=== PATIENT | female | born 1945 | race Caucasian/White ===

== ENCOUNTER → 2024-07-17 08:03 | Outpatient (REF) | payer MEDICARE, OTHER, SELFPAY ==
[2024-07-17 10:05] LABS: ALT (SGPT) 13 U/L (0-35); AST (SGOT) 21 U/L (14-36); Albumin 4.6 g/dl (3.5-5.0); Alkaline Phosphatase 40 U/L (38-126); Blood Urea Nitrogen 28 mg/dl (7-17); Calcium 10.1 mg/dl (8.4-10.2); Carbon Dioxide 28 mmol/L (22-30); Chloride 98 mmol/L (98-107); Glucose 171 mg/dl (70-99); HDL Cholesterol 97 mg/dl; LDL Cholesterol, Calculated 150 mg/dl; Potassium 4.3 mmol/L (3.5-5.1); Sodium 140 mmol/L (135-145); Total Bilirubin 0.6 mg/dl (0.2-1.3); Total Cholesterol 262 mg/dl (50-199); Total Protein 7.5 g/dl (6.3-8.2); Triglyceride 79 mg/dl (10-149); Very Low Density Lipoprotein 15 mg/dl (0-30); eGFR > 60.00
[2024-07-17 10:31] LABS: Microalbumin, Random Urine 5.4 mg/dl (0.6-1.7); Microalbumin/creatinine Ratio 36.4 mg/g
[2024-07-17 10:44] LABS: Glycohemoglobin (HgbA1c) 6.6 % (4.0-5.6)
== END ==
LOC: HWRAD 08:03
PROVIDERS: ATTENDING PHYSICIAN Internal Medicine Critical Care Medicine; FAMILY PHYSICIAN Internal Medicine
DX: R91.8 Other nonspecific abnormal finding of lung field (principal); E11.9 Type 2 diabetes mellitus without complications; E78.5 Hyperlipidemia, unspecified
CPT/HCPCS: 36415; 71250; 80053; 80061; 82043; 82570; 83036

== ENCOUNTER → 2024-09-17 12:57 | Outpatient (REF) | payer MEDICARE, OTHER, SELFPAY | LOC: HWWDC 12:57 | PROVIDERS: ATTENDING PHYSICIAN Internal Medicine | DX: Z12.31 Encounter for screening mammogram for malignant neoplasm of breast (principal) | CPT/HCPCS: 77063; 77067 ==

== ENCOUNTER → 2025-03-12 09:15 | Outpatient (REF) | payer MEDICARE, OTHER, SELFPAY ==
[2025-03-12 11:54] LABS: % Basophils 0.4 % (0-2); % Eosinophils 1.1 % (0-6); % Immature Granulocytes 0.3 % (0-0.5); % Monocytes 3.9 % (1.7-9.3); % Neutrophils 79.3 % (42.2-75.2); Absolute Eosinophils 0.1 10^3/uL (0-0.7); Absolute Lymphocytes 1.1 10^3/uL (1.2-3.4); Absolute Monocytes 0.3 10^3/uL (0.1-0.6); Absolute Neutrophils 5.6 10^3/uL (1.4-6.5); Hematocrit 41.2 % (37.0-47.0); Mean Corpuscular Hgb 28.3 pg (27.0-31.0); Mean Corpuscular Volume 83.2 fL (81.0-99.0); Mean Platelet Volume 9.3 fL (7.4-10.4); Nucleated Red Blood Cells % 0 %; Platelet Count 218 10^3/uL (130-400); Red Blood Cell Count 4.95 10^6/uL (4.20-5.40); Red Cell Dist. Width 12.6 % (11.5-14.5); White Blood Cell Count 7.1 10^3/uL (4.8-10.8)
[2025-03-12 12:35] LABS: Microalbumin, Random Urine 2.7 mg/dl (0.6-1.7); Microalbumin/creatinine Ratio 16.4 mg/g
[2025-03-12 12:57] LABS: ALT (SGPT) 12 U/L (0-35); AST (SGOT) 20 U/L (14-36); Albumin 4.6 g/dl (3.5-5.0); Alkaline Phosphatase 33 U/L (38-126); Blood Urea Nitrogen 14 mg/dl (7-17); Carbon Dioxide 25 mmol/L (22-30); Chloride 106 mmol/L (98-107); Glucose 147 mg/dl (70-99); HDL Cholesterol 71 mg/dl; LDL Cholesterol, Calculated 128 mg/dl; Potassium 4.4 mmol/L (3.5-5.1); Sodium 140 mmol/L (135-145); Total Bilirubin 0.8 mg/dl (0.2-1.3); Total Cholesterol 225 mg/dl (50-199); Total Protein 7.4 g/dl (6.3-8.2); Triglyceride 130 mg/dl (10-149); Very Low Density Lipoprotein 26 mg/dl (0-30); eGFR > 60.00
[2025-03-12 12:58] LABS: TSH Reflex To Free T4 0.64 uIU/ml (0.47-4.68)
[2025-03-12 13:01] LABS: Glycohemoglobin (HgbA1c) 6.6 % (4.0-5.6)
[2025-03-12 13:33] LABS: Vitamin B12 649 pg/ml (239-931)
[2025-03-13 13:43] LABS: Lyme Antibody Screen, EIA Negative (Negative)
== END ==
LOC: HWLAB 09:15
PROVIDERS: ATTENDING PHYSICIAN Internal Medicine
DX: R51.9 Headache, unspecified (principal); M79.2 Neuralgia and neuritis, unspecified; R41.3 Other amnesia; E78.5 Hyperlipidemia, unspecified; E11.9 Type 2 diabetes mellitus without complications
CPT/HCPCS: 36415; 80053; 80061; 82043; 82570; 82607; 82746; 83036; 84443; 85025; 86618

== ENCOUNTER 2025-05-29 11:09 | Emergency (ER) | payer MEDICARE, OTHER, SELFPAY ==
[2025-05-29 11:16] VITALS: BP 209/111
[2025-05-29 11:38] VITALS: BMI 18.9
--- NOTE | 2025-05-29 11:44 | ED.GENMED ---
History of Present Illness
<Lev Lazo PA-C - Last Filed: 05/29/25 16:56>
General
Chief Complaint: Chest Pain
Time Seen by Provider: 05/29/25 11:33
History of Present Illness
History of Present Illness:
Patient is a 79-year-old female with past medical history of COPD, prior tobacco use, CAD with prior triple bypass and stent/angioplasty, hypertension, here today for evaluation of an episode of chest pain that began approximately 2 hours prior to
arrival. Pain began as sudden along the center of her chest and was described as moderate in intensity. Pain lasted 20 minutes. She took 2 nitroglycerin and thus had resolution of symptoms. She is currently pain-free but does endorse not feeling
right. No difficulty breathing. No fevers or vomiting. No numbness or tingling. No other acute complaints.
Past History
<Lev Lazo PA-C - Last Filed: 05/29/25 16:56>
Past History
ED Past Medical History: CAD, COPD, HTN, Hypercholesterolemia (Diet Controlled), SC (nonSTEMI 10/25/18) and Psychiatric (Suicide attempts �2)
ED Past Surgical History: Cardiac (Triple bypass 2006, cath w/ stent 10/2018) and Gynecological (Hysterectomy)
Social History
Tobacco: Former smoker
Alcohol: None
Drug: None
Personal:
Living: with family
Employment: Retired
Family History
Family History: Hypertension
Review of Systems
<Lev Lazo PA-C - Last Filed: 05/29/25 16:56>
Review of Systems
All Other Systems: ROS reviewed and negative except as documented in HPI and ROS
Phy Exam
<Lev Lazo PA-C - Last Filed: 05/29/25 16:56>
Physical Exam
Physical Exam:
GENERAL: Alert , in no apparent distress
EYE: Normal conjunctiva
NECK: Supple
ENT: o/p clr, mmm.
CARDIAC: Regular rate and rhythm .
LUNGS: Clear breath sounds bilaterally, no acute respiratory distress, no wheezes/rales/rhonchi
NEUROLOGICAL: Alert and oriented, no focal neuro deficits
SKIN: Warm and dry, skin intact.
MUSCULOSKELETAL: No edema, well perfused.
PSYCH: Normal and appropriate interaction.
Scores
<Lev Lazo PA-C - Last Filed: 05/29/25 16:56>
Heart Score for Chest Pain Patients
STEMI patient?: No
History: Slightly or Non-Suspicious
ECG: Normal
Age: >/= 65 years
Risk Factors: >/= 3 Risk Factors or History of CAD
Troponin: </= Normal Limit
Heart Score for Chest Pain Patients: 4
Heart Score Risk: 20.3% MACE over next 6 weeks
Course
<Lev Lazo PA-C - Last Filed: 05/29/25 16:56>
Orders/Labs/Results
Orders:
Orders
05/29/25 11:11
Electrocardiogram (*1) Urgent
Reason for Study: Chest Pain
EKG- Treatment ONCE
05/29/25 11:35
Cardiac Monitoring- Treatment ONCE
IV Insert/Care/Rem.- Treatment PRN
05/29/25 11:37
Basic Metabolic Panel Urgent
Complete Blood Count/With Diff Urgent
Troponin I Urgent
05/29/25 11:44
Electrocardiogram (*1) Urgent
Reason for Study: Chest Pain
EKG- Treatment ONCE
CR Chest - 2 Views Urgent
Comment:
Reason For Exam: chest pain
05/29/25 14:36
Troponin I Urgent
Abnormal Lab Results
05/29/25
11:37
MCHC 32.9 L g/dL
(33.0-37.0)
Neutrophils % 78.5 H %
(42.2-75.2)
Lymphocytes % 15.1 L %
(20.5-51.1)
BUN 22 H mg/dl
(7-17)
Glucose 135 H mg/dl
(70-99)
Calcium 10.7 H mg/dl
(8.4-10.2)
05/29/25 11:37
05/29/25 11:37
Vital Signs
Initial and Last Documented VS:
Initial Vital Signs
Temp Pulse Resp BP Pulse Ox
98 F 97 16 209/111 98
05/29/25 11:16 05/29/25 11:16 05/29/25 11:16 05/29/25 11:16 05/29/25 11:16
Last Documented Vital Signs
Temp Pulse Resp BP Pulse Ox
98 F 92 26 162/99 96
05/29/25 11:16 05/29/25 16:07 05/29/25 13:00 05/29/25 16:07 05/29/25 16:07
<Nathalie Daly MD - Last Filed: 05/29/25 12:00>
Orders/Labs/Results
Orders:
Orders
05/29/25 11:11
Electrocardiogram (*1) Urgent
Reason for Study: Chest Pain
EKG- Treatment ONCE
05/29/25 11:35
Cardiac Monitoring- Treatment ONCE
IV Insert/Care/Rem.- Treatment PRN
05/29/25 11:37
Basic Metabolic Panel Urgent
Complete Blood Count/With Diff Urgent
Troponin I Urgent
05/29/25 11:44
Electrocardiogram (*1) Urgent
Reason for Study: Chest Pain
EKG- Treatment ONCE
CR Chest - 2 Views Urgent
Comment:
Reason For Exam: chest pain
05/29/25 14:36
Troponin I Urgent
Abnormal Lab Results
05/29/25
11:37
MCHC 32.9 L g/dL
(33.0-37.0)
Neutrophils % 78.5 H %
(42.2-75.2)
Lymphocytes % 15.1 L %
(20.5-51.1)
BUN 22 H mg/dl
(7-17)
Glucose 135 H mg/dl
(70-99)
Calcium 10.7 H mg/dl
(8.4-10.2)
05/29/25 11:37
05/29/25 11:37
Vital Signs
Initial and Last Documented VS:
Initial Vital Signs
Temp Pulse Resp BP Pulse Ox
98 F 97 16 209/111 98
05/29/25 11:16 05/29/25 11:16 05/29/25 11:16 05/29/25 11:16 05/29/25 11:16
Last Documented Vital Signs
Temp Pulse Resp BP Pulse Ox
98 F 92 26 162/99 96
05/29/25 11:16 05/29/25 16:07 05/29/25 13:00 05/29/25 16:07 05/29/25 16:07
<Lev Lazo PA-C - Last Filed: 05/29/25 16:56>
MDM/Problems Addressed
Differential Diagnosis Includes:
Patient is a 79-year-old female with past medical history of COPD, prior tobacco use, CAD with prior triple bypass and stent/angioplasty, hypertension, here today for evaluation of an episode of chest pain. Patient well-appearing. She is
significantly hypertensive here. She is currently chest pain-free. She has a normal and reassuring examination. Will initiate labs and cardiac workup.
05/29/2025 16:33: Screening labs grossly within normal limits/consistent with the patient's baseline. Troponin x 2 negative. Chest x-ray negative aside from COPD. EKG nonischemic. I had a lengthy discussion with the patient regarding her
symptoms at this time. She is currently chest pain-free and has not had chest pain while in the emergency department. Last episode of chest pain was the single episode earlier today which lasted for 20 minutes and self resolved. Blood pressure is
improving. Patient appears well overall. She is requesting to be discharged. I do feel that at this time this is appropriate given she is currently chest pain-free and has had no abnormalities in her workup. We discussed supportive measures and
very close follow-up with her photo lab technician. She was provided strict return precautions for worsening symptoms. All questions answered. Stable for discharge.
<Lev Lazo PA-C - Last Filed: 05/29/25 16:56>
*Pulse Oximetry
SaO2: 99
Oxygen Mode of Delivery: Room air
Patient hypoxic: no
*Critical Care Note
Total Time (30-74mins, 75-104mins- exclusive of procedures): Not Applicable
ED Attending Note
<Lev Lazo PA-C - Last Filed: 05/29/25 16:56>
-
Portions of this chart may have been created with voice recognition software.� Occasional wrong word or��sound alike� substitutions may have occurred due to the inherent limitations of voice recognition software.
<Nathalie Daly MD - Last Filed: 05/29/25 12:00>
ED Attending Note
Patient seen and examined by attending physician: Yes
I performed the substantive portion of visit, reviewed & personally made and approve the management plan that is documented in note by myself or ANJEL.: Yes
ED Attending Note:
Patient appears well and comfortable. Lungs are clear. Heart sounds regular. No edema on exam
Discharge Plan
Departure
Patient Disposition: Home (Routine Discharge)
Date of Disposition: 05/29/25
Time of Disposition: 16:27
Patient with high blood pressure during this ER visit?: Yes
Condition: Good
Discharge Problem:
Chest pain
Instructions: Chest Pain CBC Follow Up
Prescriptions:
No Action
albuterol sulfate 1 PUFF HFA aerosol inhaler
2 puff inhalation R Q4HPRN PRN (Reason: sob)
ipratropium-albuterol 3 ML solution for nebulization
3 ml inhalation R Q4HPRN PRN (Reason: sob)
amitriptyline 10 MG tablet
40 mg PO HS
cholecalciferol (vitamin D3) 1,000 UNITS tablet
1,000 units PO DAILY
nitroglycerin 0.4 MG tablet, sublingual
0.4 mg sublingual [id number] PRN (Reason: chest pain) Qty: 25 2RF
clopidogrel 75 MG tablet
75 mg PO DAILY
hydrochlorothiazide 12.5 MG tablet
12.5 mg PO DAILY
pxccgtfjuyn-sepkzkiad-exgqgehj [Trelegy Ellipta] 1 EACH blister with device
1 ea inhalation R DAILY
aspirin 81 MG tablet,delayed release (DR/EC)
81 mg PO HS
guaifenesin [Mucus Relief ER] 600 MG tablet extended release 12hr
600 mg PO BID
diltiazem HCl 180 MG capsule,extended release 24hr
180 mg PO DAILY Qty: 30 0RF
prednisone 10 MG tablet
10 mg PO .TAPER Qty: 30 0RF
Rx Instructions:
Take 40mg daily x3days, 30mg daily x3days,
20mg daily x3days, 10mg daily x3days.
Referrals:
Khushboo Alvarez MD [Family Provider, Internal Medicine] - Follow up in 5-7 days
Kb Doty MD [Active, Cardiology] - Follow up in 1 week
Activity Restrictions/Additional Instructions:
You were seen today for evaluation of chest pain. Your workup today is largely unremarkable. Please follow-up with your photo lab technician for further testing and evaluation. Return for any new, worsening, or concerning symptoms.
Interventions
Interventions:
*Risk Screen - Suicide Last Done: 05/29/25 11:16
*General Assessment Last Done: 05/29/25 11:40
*Neglect/Abuse Screening Last Done: 05/29/25 11:16
*ED- Fall Risk Assessment Last Done: 05/29/25 15:10
*ED COVID-19 Vaccine History Last Done: 05/29/25 15:10
ED- Cardiac Assessment Last Done: 05/29/25 11:39
Discharge Date and Time
Print Language: VIETNAMESE
[2025-05-29 11:45] LABS: Hematocrit 42.6 % (37.0-47.0); Hemoglobin 14.0 g/dL (12.0-16.0); Mean Corp Hgb Conc. 32.9 g/dL (33.0-37.0); Mean Corpuscular Volume 85.5 fL (81.0-99.0); Nucleated Red Blood Cells % 0 %; Platelet Count 235 10^3/uL (130-400); Red Cell Dist. Width 12.7 % (11.5-14.5)
[2025-05-29 12:06] LABS: Blood Urea Nitrogen 22 mg/dl (7-17); Calcium 10.7 mg/dl (8.4-10.2); Carbon Dioxide 28 mmol/L (22-30); Chloride 103 mmol/L (98-107); Estimated Creatinine Clearance 53 ml/min; Glucose 135 mg/dl (70-99); Sodium 138 mmol/L (135-145); eGFR > 60.00
[2025-05-29 12:08] LABS: Troponin I < 0.012 ng/ml
[2025-05-29 12:57] VITALS: BP 204/108
[2025-05-29 13:00] VITALS: BP 200/104
[2025-05-29 13:52] VITALS: BP 177/163
[2025-05-29 14:00] VITALS: BP 187/95
[2025-05-29 15:08] LABS: Troponin I < 0.012 ng/ml
[2025-05-29 16:07] VITALS: BP 162/99
== END 2025-05-29 17:04 | disposition home or self-care (01) ==
LOC: EMR 11:09
PROVIDERS: Physician Assistant; EMERGENCY PHYSICIAN Emergency Medicine; FAMILY PHYSICIAN Internal Medicine
DX: R07.9 Chest pain, unspecified (principal); J44.9 Chronic obstructive pulmonary disease, unspecified; I25.10 Atherosclerotic heart disease of native coronary artery without angina pectoris; I25.2 Old myocardial infarction; I10 Essential (primary) hypertension; E78.00 Pure hypercholesterolemia, unspecified; Z87.891 Personal history of nicotine dependence; Z95.1 Presence of aortocoronary bypass graft; Z95.5 Presence of coronary angioplasty implant and graft
CPT/HCPCS: 99285; 71046; 80048; 84484; 85025; 93005

== ENCOUNTER → 2025-07-08 13:51 | Outpatient (REF) | payer MEDICARE, OTHER, SELFPAY | LOC: HWRCS 13:51 | PROVIDERS: ATTENDING PHYSICIAN Internal Medicine Cardiovascular Disease; FAMILY PHYSICIAN Internal Medicine | DX: I25.10 Atherosclerotic heart disease of native coronary artery without angina pectoris (principal); R07.89 Other chest pain | CPT/HCPCS: 93306 ==

== ENCOUNTER → 2025-08-25 09:11 | Outpatient (REF) | payer MEDICARE, OTHER, SELFPAY | LOC: HWRAD 09:11 | PROVIDERS: ATTENDING PHYSICIAN Internal Medicine Critical Care Medicine; FAMILY PHYSICIAN Internal Medicine; REFERRING PHYSICIAN Internal Medicine Cardiovascular Disease | DX: R91.8 Other nonspecific abnormal finding of lung field (principal) | CPT/HCPCS: 71250 ==

== ENCOUNTER → 2025-09-05 12:46 | Outpatient (REF) | payer MEDICARE, OTHER, SELFPAY ==
[2025-09-05 13:22] LABS: Hematocrit 42.5 % (37.0-47.0); Hemoglobin 13.9 g/dL (12.0-16.0); Mean Corp Hgb Conc. 32.7 g/dL (33.0-37.0); Mean Corpuscular Volume 86.0 fL (81.0-99.0); Nucleated Red Blood Cells % 0 %; Platelet Count 251 10^3/uL (130-400); Red Cell Dist. Width 12.8 % (11.5-14.5)
[2025-09-05 14:10] LABS: ALT (SGPT) 15 U/L (0-35); AST (SGOT) 22 U/L (14-36); Albumin 4.6 g/dl (3.5-5.0); Alkaline Phosphatase 38 U/L (38-126); Blood Urea Nitrogen 16 mg/dl (7-17); Calcium 9.7 mg/dl (8.4-10.2); Carbon Dioxide 28 mmol/L (22-30); Chloride 100 mmol/L (98-107); Glucose 185 mg/dl (70-99); Potassium 4.1 mmol/L (3.5-5.1); Sodium 135 mmol/L (135-145); Total Protein 7.6 g/dl (6.3-8.2); eGFR > 60.00
== END ==
LOC: SDSPAT 12:46
PROVIDERS: ATTENDING PHYSICIAN Student in an Organized Health Care Education/Training Program; FAMILY PHYSICIAN Internal Medicine; OTHER PHYSICIAN Internal Medicine Cardiovascular Disease
DX: I25.10 Atherosclerotic heart disease of native coronary artery without angina pectoris (principal)
CPT/HCPCS: 36415; 80053; 85025; 93005

== ENCOUNTER 2025-09-09 08:47 | Day surgery (SDC) | payer MEDICARE, OTHER, SELFPAY ==
[2025-09-05 13:12] VITALS: BMI 17.3
--- NOTE | 2025-09-05 13:41 | HPS.HSE ---
Family Physician
-
Family Physician: Khushboo Alvarez
Chief Complaint
-
Coronary artery disease. Chest pain.
History of Present Illness
The patient is a 79 year old female presenting today with a history of coronary artery disease. The patient previously underwent a CABG x3 in 2006, a PCI with drug eluting stent to the vein graft to the OM2 in October 2018, and a PCI with
drug-eluting stents to OM2 and angioplasty of circumflex in September 2019. She takes a daily baby Aspirin secondary to this diagnosis. She is noted to be statin and Zetia intolerant; therefore, her hyperlipidemia in currently diet controlled. She
did present to the emergency room in May 2025 with reports of chest pain. It was midsternal and described as the worst pain she's ever experienced. She was sitting at her computer when it all started. It was ultimately relieved with 2
nitroglycerin. She was monitored in the ER with troponin which was negative x2. A chest x-ray was negative outside of COPD. Her EKG showed normal sinus rhythm with a left anterior fascicular block. She was discharged home and advised to follow-up
with Cardiology. Work-up with Cardiology included an echocardiogram and Myocardial PET. Her echocardiogram revealed a preserved ejection fraction with mild to moderate tricuspid regurgitation. Her Myocardial PET, however, revealed a large area of
moderately decreased perfusion that is reversible in the basal anteroseptal, basal inferoseptal, basal inferior, mid anterior, mid anteroseptal, mid inferior, mid inferoseptal darling, consistent with ischemia in the LAD and RCA territories. It is
recommended she proceed with a left cardiac catheterization at this time for further intervention. She denies any current complaints today such as chest pain at rest, palpitations, nausea, vomiting, diarrhea, lightheadedness, dizziness, cough, sore
throat, or fever. She does report chronic shortness of breath at baseline due to her COPD diagnosis.
Medical History
Past Medical History
Past Medical History: Reports Other
Additional Past Medical History:
1. Coronary artery disease with history of NSTEMI, status post CABG x3, 2006, PCI with drug-eluting stent to the vein graft to the OM2, 10/2018, and PCI with drug-eluting stents to OM2, angioplasty of circumflex 09/2019.
2. Chest pain.
3. Hypertension, statin and Zetia intolerant.
4. Left anterior fascicular block.
5. Mild-moderate tricuspid regurgitation.
6. COPD.
7. Pulmonary nodules, stable on serial imaging.
8. Non-insulin dependent diabetes.
9. GERD.
10. Colon polyps.
11. Remote migraines.
12. Lumbosacral degenerative disc disease.
13. Sciatica.
14. Osteoarthritis, status post right total hip arthroplasty 2013.
15. Osteoporosis.
16. Anxiety.
17. Depression.
18. History of suicide attempt 2014 and 2015.
19. Remote history of tobacco abuse.
Past Surgical History: Reports Other
Additional Past Surgical History:
1. CABG x3.
2. PCI with drug eluting stent to the vein graft to the OM2.
3. PCI with drug-eluting stents to OM2, angioplasty of circumflex.
4. Right total hip arthroplasty.
5. Lumbosacral foraminotomy.
6. Laminectomy.
7. Hysterectomy and bilateral salpingo-oophorectomy.
8. Bilateral cataract extraction.
Social History
Tobacco: Former Smoker (She is a former up to 2 pack per day cigarette smoker who quit tobacco altogether in 2005. )
Alcohol: None
Personal:
Living: Other (She lives with her in a 1 level condo on the 1st floor. )
Family History
Family History: Not pertinent
Allergies / Home Medications
Allergy/Medication List:
Home medications:
1. ProAir HFA inhaler 2 puffs up to 6 times a day as needed.
2. Amitriptyline 30 mg p.o. at bedtime.
3. Aspirin 81 mg p.o. at bedtime.
4. Cholecalciferol 25 mcg p.o. daily.
5. Diltiazem HCl 180 mg p.o. daily.
6. Trelegy Ellipta 1 inhalation daily.
7. Ipratropium-albuterol 3 ml inhaled every 4 hours as needed.
8. Nitroglycerin 0.4 mg sublingual every 5 minutes as needed (maximum dosage of 3).
9. Spironolactone 12.5 mg p.o. daily.
Allergies: Repatha. Amlodipine. Abilify. Celexa. Codeine. Zetia. Tricor. Dilaudid. Lamictal. Levaquin. Lisinopril. Cardia. Lopressor. Niaspan. Livalo. Lyrica. Statins. Brilinta. Viibryd. Ambien.
Review of Systems
-
A 12 point ROS was completed and negative except as noted: Yes
Physical Exam
Vital Signs
Blood pressure 155/78. Heart rate 80. Respirations 18. Pulse ox 99% on room air.
Height 5 feet, 1.5 inches. Weight 42.2 kg. BMI 17.3.
Physical Exam
General: Well Developed, No Apparent Distress and Other (Underweight.)
HEENT: NormoCephalic, Moist mucous membranes, Atraumatic and PERRLA
Respiratory: Clear
Cardiac: Regular Rhythm
GI: Soft, Non Tender and Non Distended
Musculoskeletal: No Edema and Normal Gait & Station
Skin: Warm and Dry
Neuro: AO x 3 and Nonfocal/grossly intact
Laboratory Results
-
DIAGNOSTIC STUDIES as of 09/05/2025: White blood cell count 6.6. Hemoglobin 13.9. Platelet count 251,000. Sodium 135. Potassium 4.1. BUN 16. Creatinine 0.7. Glucose 185. Calcium 9.7. AST 22. ALT 15. Albumin 4.6.
EKG 09/05/2025: Normal sinus rhythm. Left axis deviation. Inferior infarct, cited on or before 05/29/2025.
Chest CT 08/25/2025: No acute disease of the chest. Stable pulmonary nodules. All stable from 08/2023. Some are stable from older studies. These are felt to be benign. Moderate atherosclerotic vascular disease. Too small to characterize hypodense
left renal lesion likely a benign cyst.
Myocardial PET 08/29/2025: Perfusion imaging reveals a large area of moderately decreased perfusion that is reversible in the basal anteroseptal, basal inferoseptal, basal inferior, mid anterior, mid anteroseptal, mid inferior, mid inferoseptal
darling consistent with ischemia in the LAD and RCA territories. Coronary flow reserve is 1.13. Systolic function is globally normal but LVEF is 75% at rest with reduction during stress to 68%. Stress Risk is high risk study (>3% CO or /year) No
previous study available for comparison.
Echocardiogram 07/08/2025: Ejection fraction is 65-70% by visual assessment. Right ventricular size and systolic function are within normal limits. Mild to moderate tricuspid regurgitation. Estimated pulmonary artery pressure of 31 mmHg, assuming a
right atrial pressure of 3 mmHg. Compared to a prior transthoracic echocardiogram study from 04/27/2022, mild to moderate tricuspid regurgitation is now noted.
Impression/Plan
-
IMPRESSION/PLAN:
1. Coronary artery disease and chest pain: The patient is in need of a left cardiac catheterization with Dr. Edouard Epstein on 09/09/2025. The benefits and risks of the procedure have been explained to the patient. The patient understands these
risks and wishes to proceed. She is aware to continue her baby Aspirin daily, up to and including the morning of her procedure. She is aware she can take all her morning medications the day of surgery with a small sip of water.
[2025-09-09] VITALS (8 sets, daily range): BP systolic 172–201; BP diastolic 85–100
[2025-09-09] MEDS: NSS 127 ML IV (09:49)
--- NOTE | 2025-09-09 13:13 | ITS.CL.PN ---
Power Screwdriver Operator - Procedure Note
Procedure
Procedure Note:
CARDIAC CATHETERIZATION REPORT
Date of Procedure: 09/09/2025
Referring: Dr. Kb Doty MD
Indication: chest pain, high risk cardiac stress test
PROCEDURE(S)
1. left heart catheterization
2. coronary angiography
3. bypass graft angiography
ACCESS: 6F left radial artery (closure: radial band)
CATHETERS
1. 6F AIDE
2. 6F JR4
2. 6F JL4
MODERATE SEDATION: 45 minutes of moderate sedation was utilized. An independent medical fee clerk was present to assist with and help manage the patient's level of consciousness and physiologic status.
HEMODYNAMIC DATA
LV 152/12 (EDP 18) mmHg
AO 164/76 (mean 117) mmHg
CORONARY ANGIOGRAPHY
Dominance: right
LM: large with mild disease
LAD: ostially occluded. The PARDO supplies brisk runoff to the mid-distal LAD and supplies the proximal vessel via retrograde flow through a heavily diseased proximal vessel.
LCx: large vessel giving rise to a moderate caliber OM1, large OM2, and a small LPL branch. The OM2 is proximally occluded and fills via the SVG. There is a 90% stenosis in the mid-LCx before the OM2 takeoff
RCA: Totally occluded proximally a R-R epicardial collateral supplying flow to a moderate caliber marginal branch which subsequently supplies retrograde flow back to the AV groove and fills the distal RCA and large RPDA.
BYPASS GRAFT ANGIOGRAPHY:
PARDO-LAD: the PARDO is taken as a pedicle and forms an anastomosis with the mid-LAD.
SVG-OM: widely patent supplying brisk runoff to the OM2
RADIATION: dose 129 mGy; DAP 6.15 Gy*cm2; fluoroscopy time 7.6 min
CONCLUSIONS
1. Severe coronary artery disease status post bypass and PCI as described, largely unchanged from 2019 angiography. Suspect that her chest pain episode was non-cardiac and her stress test is explained by stable severe disease in the RCA and LAD that
is asymptomatic and thus would not benefit from revascularization.
2. Mildly elevated LV filling pressure and no significant gradient across the aortic valve
RECOMMENDATIONS
1. Aggressive secondary prevention of coronary artery disease
Copy to: Dr. Kb Doty MD (administrative sales assistant); Dr. Khushboo Alvarez MD (PCP)
Signed: Edouard Epstein MD, PhD
== END 2025-09-09 15:30 | disposition home or self-care (01) ==
LOC: CATH 08:47
PROVIDERS: ATTENDING PHYSICIAN Student in an Organized Health Care Education/Training Program; FAMILY PHYSICIAN Internal Medicine; OTHER PHYSICIAN Internal Medicine Cardiovascular Disease
DX: I25.10 Atherosclerotic heart disease of native coronary artery without angina pectoris (principal); Z95.1 Presence of aortocoronary bypass graft; E11.9 Type 2 diabetes mellitus without complications; F32.A Depression, unspecified; I25.2 Old myocardial infarction; I10 Essential (primary) hypertension; J44.9 Chronic obstructive pulmonary disease, unspecified; I44.4 Left anterior fascicular block; Z87.891 Personal history of nicotine dependence; I07.1 Rheumatic tricuspid insufficiency; M19.90 Unspecified osteoarthritis, unspecified site; M81.0 Age-related osteoporosis without current pathological fracture; Z79.82 Long term (current) use of aspirin; Z79.899 Other long term (current) drug therapy; Z86.0100 Personal history of colon polyps, unspecified; Z91.51 Personal history of suicidal behavior; F41.9 Anxiety disorder, unspecified; Z88.5 Allergy status to narcotic agent; M51.379 Other intervertebral disc degeneration, lumbosacral region without mention of lumbar back pain or lower extremity pain; K21.9 Gastro-esophageal reflux disease without esophagitis; R91.8 Other nonspecific abnormal finding of lung field; Z88.8 Allergy status to other drugs, medicaments and biological substances; Z88.1 Allergy status to other antibiotic agents; Z90.710 Acquired absence of both cervix and uterus; Z95.5 Presence of coronary angioplasty implant and graft; Z90.722 Acquired absence of ovaries, bilateral; Z96.641 Presence of right artificial hip joint; Z98.41 Cataract extraction status, right eye; Z98.42 Cataract extraction status, left eye
CPT/HCPCS: 99152; 99153; 93459; C1769; Q9967